=== PATIENT | female | born 1980 | race Caucasian/White ===

== ENCOUNTER 2016-12-30 22:22 | Emergency (ER) | payer MEDICAID ==
[2016-12-31] MEDS ORDERED: OXYCODONE HCL IR 5 MG TABLET PO ONE (01:35)
--- NOTE | 2016-12-31 01:41 | ER Document Report ---
HPI - HPI Patient complains to provider of: right shoulder injury Pain Level: 4 Context: Patient is a 36-year-old female that comes emergency department for chief complaint of right shoulder pain. She states that 3 weeks ago she had an initial injury where she was lifting a box and felt a sharp pop, she had swelling and bruising to the area which has resolved, however today she again felt a sharp pain without lifting and this has not resolved. Patient states she has had rotator cuff injuries twice in the past. She has never had shoulder surgery. - REPRODUCTIVE Reproductive: DENIES: : - DERM Skin Color: Normal, [place] Past Medical History - General Information source: Patient - Social History Smoking Status: Never Smoker Frequency of alcohol use: None Drug Abuse: None Lives with: Family Family History: Reviewed & Not Pertinent Patient has suicidal ideation: No Patient has homicidal ideation: No - Past Medical History Cardiac Medical History: Reports: Hx Hypertension Neurological Medical History: Reports: Hx Migraine Renal/ Medical History: Denies: Hx Peritoneal Dialysis Psychiatric Medical History: Reports: Hx Depression Past Surgical History: Reports: Hx Abdominal Surgery, Hx Appendectomy, Hx Cholecystectomy, Hx Hysterectomy, Hx Oral Surgery, Hx Orthopedic Surgery, Hx Tubal Ligation - Immunizations Hx Diphtheria, Pertussis, Tetanus Vaccination: Yes Vertical Provider Document - CONSTITUTIONAL General Appearance: WD/WN, Mild Distress - patient appears to be in some pain, no severe distress - INFECTION CONTROL TRAVEL OUTSIDE OF THE [place] IN LAST 30 DAYS: No - HEENT HEENT: Atraumatic, Normocephalic - NECK Neck: Normal Inspection - RESPIRATORY Respiratory: Breath Sounds Normal, No Respiratory Distress O2 Sat by Pulse Oximetry: 96 - CARDIOVASCULAR Cardiovascular: Regular Rate, Regular Rhythm - GI/ABDOMEN Gastrointestinal: Abdomen Soft, Abdomen Non-Tender - BACK Back: Normal Inspection - MUSCULOSKELETAL/EXTREMETIES Musculoskeletal/Extremeties: Tender - Tender generally over the right proximal humerus and over the superior and anterior shoulder. Very painful performance of limited abduction. Can put arm behind back. 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 Course - Re-evaluation Re-evalutation: Patient was very limited range of motion of the right shoulder, on examination the shoulder is not dislocated, patient has tenderness over the area. She can still place her arm behind her back. She has almost no ability to perform abduction. Normal distal neurovascular exam. Patient has already had an x-ray on this. Placing insulin, referring to orthopedics, discussed return precautions, patient states understanding and agreement. - Vital Signs Vital signs: Temp Pulse Resp BP Pulse Ox 98.3 F 91 20 129/101 H 96 12/30/16 23:42 12/30/16 23:42 12/30/16 23:42 12/30/16 23:42 12/30/16 23:42 Discharge - Discharge Clinical Impression: Right shoulder injury Qualifiers: Encounter type: initial encounter Qualified Code(s): S49.91XA - Unspecified injury of right shoulder and upper arm, initial encounter Condition: Stable Disposition: HOME, SELF-CARE Additional Instructions: Your examination is concerning for a torn rotator cuff. This may heal, or it may require surgery. Take medications as prescribed, follow-up closely with orthopedics. Take the arm out of the sling several times a day to perform mild range of motion movements to avoid locking of the shoulder. Return to the emergency department for any concerning symptoms. Prescriptions: Oxycodone HCl [Oxy-Ir 5 mg Tablet] 5 mg PO Q4HP PRN #12 tab PRN Reason: Naproxen 500 mg PO BID #20 tablet Referrals: GERBER HAYES MD [ACTIVE STAFF] - Follow up in 3-5 days
[2016-12-31 01:47] VITALS: BP 131/90
== END 2016-12-31 02:00 | disposition home or self-care (01) ==
LOC: ER 22:22
DX: S49.91XA Unspecified injury of right shoulder and upper arm, initial encounter (principal); M79.89 Other specified soft tissue disorders; X50.0XXA Overexertion from strenuous movement or load, initial encounter
CPT/HCPCS: 99283; J3490

== ENCOUNTER 2017-01-21 14:09 | Emergency (ER) | payer MEDICAID ==
--- NOTE | 2017-01-21 15:16 | ER Document Report ---
HPI - HPI Patient complains to provider of: wrist pain Onset: Other - 3 days Onset/Duration: Persistent Quality of pain: Achy Severity: Severe Pain Level: 4 Context: Patient presents to the emergency department with complaints of right wrist pain for the past 3 days. She reports history of seizures and thinks she may have hurt it when she had a seizure. Associated Symptoms: None Exacerbated by: Movement Relieved by: Denies Similar symptoms previously: No Recently seen / treated by doctor: No - REPRODUCTIVE Reproductive: DENIES: : - DERM Skin Color: Normal Past Medical History - General Information source: Patient - Social History Smoking Status: Unknown if Ever Smoked Cigarette use (# per day): No Frequency of alcohol use: None Drug Abuse: None Lives with: Family Family History: Reviewed & Not Pertinent - Past Medical History Cardiac Medical History: Reports: Hx Hypertension Neurological Medical History: Reports: Hx Migraine, Hx Seizures Renal/ Medical History: Denies: Hx Peritoneal Dialysis Psychiatric Medical History: Reports: Hx Depression Past Surgical History: Reports: Hx Abdominal Surgery, Hx Appendectomy, Hx Cholecystectomy, Hx Hysterectomy, Hx Oral Surgery, Hx Orthopedic Surgery, Hx Tubal Ligation - Immunizations Hx Diphtheria, Pertussis, Tetanus Vaccination: Yes Vertical Provider Document - CONSTITUTIONAL Agree With Documented VS: Yes Exam Limitations: No Limitations General Appearance: WD/WN - INFECTION CONTROL TRAVEL OUTSIDE OF THE [place] IN LAST 30 DAYS: No - HEENT HEENT: Atraumatic, Normocephalic - NECK Neck: Supple - RESPIRATORY Respiratory: No Respiratory Distress O2 Sat by Pulse Oximetry: 97 - CARDIOVASCULAR Cardiovascular: Regular Rate - MUSCULOSKELETAL/EXTREMETIES Musculoskeletal/Extremeties: MAEW, FROM, Tender - reports lateral right wrist ttp, no obvious deformity, no swelling, no erythema/warmth, good radial pulse, brisk cap refill - NEURO Level of Consciousness: Awake, Alert, Appropriate Motor/Sensory: No Motor Deficit - DERM Integumentary: Warm, Dry Adult Front & Back Diagram: 1 - reports pain Course - Re-evaluation Re-evalutation: 01/21/17 15:45 pt instructed on neg xray, instructed on ice, ibuprofen, fu with pcp for continued pain. pt very irritated, "why am i hurting" "motrin not helping the pain" Pt instructed to fu with pcp and referral to ortho as indicated - Vital Signs Vital signs: Temp Pulse Resp BP Pulse Ox 98.4 F 96 16 149/91 H 97 01/21/17 14:16 01/21/17 14:16 01/21/17 14:16 01/21/17 14:16 01/21/17 14:16 - Diagnostic Test Radiology reviewed: Image reviewed, Reports reviewed - neg for fx Discharge - Discharge Clinical Impression: Right wrist pain, Elevated blood pressure reading Condition: Stable Disposition: HOME, SELF-CARE Additional Instructions: *You have been evaluated for right wrist pain, elevated blood pressure reading *Rest/Ice/Elevate *Follow up with orthopedics for continued pain-call for an appointment *Take ibuprofen as indicated for pain *Return to ED for worsening condition, changes, needs ready for blood pressure Monitor your blood pressure. Your blood pressure was elevated today. This may be because you were anxious, in pain or because you need medication. It is important to follow up with your primary care provider for full evaluation. Forms: Elevated Blood Pressure
[2017-01-21 15:59] VITALS: BP 119/84
== END 2017-01-21 15:58 | disposition home or self-care (01) ==
LOC: ER 14:09
DX: M25.531 Pain in right wrist (principal); R03.0 Elevated blood-pressure reading, without diagnosis of hypertension; R56.9 Unspecified convulsions
CPT/HCPCS: 99283

== ENCOUNTER 2017-03-26 13:26 | Emergency (ER) | payer MEDICAID ==
[2017-03-26 13:58] VITALS: BP 131/90
[2017-03-26] MEDS ORDERED: NORMAL SALINE 1000 ML 1,000 ML IV ONE (14:24)
[2017-03-26] MEDS ORDERED: ONDANSETRON HCL INJ/PF 4 MG/2 ML SDV IV ONE (14:24)
--- NOTE | 2017-03-26 14:26 | ER Document Report ---
ED Medical Screen (RME) - General Chief Complaint: Nausea/Vomiting/Diarrhea Stated Complaint: VOMITING,WEAKNESS Time Seen by Provider: 03/26/17 14:23 Mode of Arrival: Wheelchair Information source: Patient TRAVEL OUTSIDE OF THE U.[place] IN LAST 30 DAYS: No - HPI Patient complains to provider of: vomiting, dehydration Onset: Other - pt. without AC in her home was seen last night at [facility] in [place] for dehydration and vomiting -- was only given a small amount of IVF and told she had a UTI. Had continued vomiting today. Can't keep anything down - Related Data Allergies/Adverse Reactions: tramadol [Tramadol] Allergy (Verified 03/26/17 13:54) seizure acetaminophen [From Tylenol] Adverse Reaction (Verified 03/26/17 13:54) rash lorazepam [Lorazepam] Adverse Reaction (Verified 03/26/17 13:54) rash Penicillins Adverse Reaction (Verified 03/26/17 13:54) rash Past Medical History - Past Medical History Cardiac Medical History: Reports: Hx Hypertension Neurological Medical History: Reports: Hx Migraine, Hx Seizures Renal/ Medical History: Denies: Hx Peritoneal Dialysis Musculoskeltal Medical History: Reports Hx Arthritis Psychiatric Medical History: Reports: Hx Depression Past Surgical History: Reports: Hx Abdominal Surgery, Hx Appendectomy, Hx Cholecystectomy, Hx Hysterectomy, Hx Oral Surgery, Hx Orthopedic Surgery, Hx Tubal Ligation - Immunizations Hx Diphtheria, Pertussis, Tetanus Vaccination: Yes Physical Exam - Vital signs Vitals: Temp Pulse Resp BP Pulse Ox 98.0 F 89 16 131/90 H 98 03/26/17 13:55 03/26/17 13:55 03/26/17 13:55 03/26/17 13:55 03/26/17 13:55 Course - Vital Signs Vital signs: Temp Pulse Resp BP Pulse Ox 98.0 F 89 16 131/90 H 98 03/26/17 13:55 03/26/17 13:55 03/26/17 13:55 03/26/17 13:55 03/26/17 13:55
[2017-03-26 15:05] LABS: ABSOLUTE BASOPHILS # (AUTO) 0.1 10^3/uL (0.0-0.2); ABSOLUTE EOSINOPHILS # (AUTO) 0.1 10^3/uL (0.0-0.6); ABSOLUTE LYMPHOCYTES (AUTO) 2.8 10^3/uL (0.5-4.7); ABSOLUTE MONOCYTES (AUTO) 0.7 10^3/uL (0.1-1.4); ABSOLUTE NEUT (AUTO) 5.3 10^3/uL (1.7-8.2); BASOPHILS % (AUTO) 0.9 % (0-2); EOSINOPHILS % (AUTO) 1.2 % (0-6); HEMATOCRIT 42.7 % (36.0-47.0); HEMOGLOBIN 14.7 g/dL (12.0-15.5); HGB HCT DIFFERENCE 1.4; LYMPHOCYTES % (AUTO) 30.9 % (13-45); MEAN CORPUSCULAR HEMOGLOBIN 32.3 pg (27.0-33.4); MEAN CORPUSCULAR HGB CONC 34.5 g/dL (32.0-36.0); MEAN CORPUSCULAR VOLUME 94 fl (80-97); MONOCYTES % (AUTO) 8.2 % (3-13); RED BLOOD COUNT 4.56 10^6/uL (3.72-5.28); RED CELL DISTRIBUTION WIDTH 13.2 % (11.5-14.0); SEGMENTED NEUTROPHILS % (AUTO) 58.8 % (42-78); WHITE BLOOD COUNT 9.1 10^3/uL (4.0-10.5)
[2017-03-26 15:24] LABS: ALANINE AMINOTRANSFERASE 38 U/L (9-52); ALBUMIN 4.9 g/dL (3.5-5.0); ALKALINE PHOSPHATASE 160 U/L (38-126); ANION GAP 14 (5-19); ASPARTATE AMINO TRANSFERASE 21 U/L (14-36); BILIRUBIN,DIRECT 0.3 mg/dL (0.0-0.4); BILIRUBIN,TOTAL 0.9 mg/dL (0.2-1.3); BLOOD UREA NITROGEN 16 mg/dL (7-20); CARBON DIOXIDE 25 mmol/L (22-30); CHLORIDE 101 mmol/L (98-107); CREATININE RESULT 0.76 mg/dL (0.52-1.25); GLUCOSE 96 mg/dL (75-110); POTASSIUM 4.3 mmol/L (3.6-5.0); SODIUM 140.2 mmol/L (137-145); TOTAL PROTEIN 8.6 g/dL (6.3-8.2)
[2017-03-26 15:37] LABS: APPEARANCE,URINE SLIGHTLY-CLOUDY; BILIRUBIN,URINE NEGATIVE (NEGATIVE); GLUCOSE, URINE NEGATIVE (NEGATIVE); KETONES,URINE NEGATIVE (NEGATIVE); LEUKOCYTE ESTERASE,URINE NEGATIVE (NEGATIVE); NITRITE,URINE NEGATIVE (NEGATIVE); PROTEIN,URINE 30 mg/dL (NEGATIVE); URINE SPECIFIC GRAVITY 1.025; UROBILINOGEN,URINE NEGATIVE mg/dL (<2.0)
--- NOTE | 2017-03-26 16:41 | ER Document Report ---
ED General - General Chief Complaint: Nausea/Vomiting/Diarrhea Stated Complaint: VOMITING,WEAKNESS Time Seen by Provider: 03/26/17 14:23 Mode of Arrival: Wheelchair Notes: 37-year-old female presents with dehydration and weakness. She thinks she is dehydrated because she has been able to keep anything down secondary to vomiting. She believes the vomiting is secondary to a kidney infection which was diagnosed last night at [facility] where she got IV fluids and is now taking Bactrim and Pyridium. She has had a history of nauseous before and normally takes Zofran has not had any medicine. Decreased oral intake. No fevers or chills, no worsening of UTI symptoms TRAVEL OUTSIDE OF THE [place] IN LAST 30 DAYS: No - Related Data Allergies/Adverse Reactions: tramadol [Tramadol] Allergy (Verified 03/26/17 13:54) seizure acetaminophen [From Tylenol] Adverse Reaction (Verified 03/26/17 13:54) rash lorazepam [Lorazepam] Adverse Reaction (Verified 03/26/17 13:54) rash Penicillins Adverse Reaction (Verified 03/26/17 13:54) rash Past Medical History - General Information source: Patient - Social History Smoking Status: Current Every Day Smoker Chew tobacco use (# tins/day): No Frequency of alcohol use: None Drug Abuse: Marijuana Family History: Reviewed & Not Pertinent - Past Medical History Cardiac Medical History: Reports: Hx Hypertension Neurological Medical History: Reports: Hx Migraine, Hx Seizures Renal/ Medical History: Denies: Hx Peritoneal Dialysis Musculoskeltal Medical History: Reports Hx Arthritis Psychiatric Medical History: Reports: Hx Depression Past Surgical History: Reports: Hx Abdominal Surgery, Hx Appendectomy, Hx Cholecystectomy, Hx Hysterectomy, Hx Oral Surgery, Hx Orthopedic Surgery, Hx Tubal Ligation - Immunizations Hx Diphtheria, Pertussis, Tetanus Vaccination: Yes Review of Systems - Review of Systems Notes: REVIEW OF SYSTEMS GEN: Dehydration weakness ENT: Denies sore throat, nasal discharge, ear pain EYES: Denies blurry vision, eye pain, discharge CV: Denies chest pain, palpitations, edema RESP: Denies cough, shortness of breath, wheezing GI: Denies abdominal pain, nausea, vomiting, diarrhea MSK: Denies joint pain/swelling, edema, positive right flank pain SKIN: Denies rash, skin lesions LYMPH: Denies swollen glands/lymph nodes NEURO: Denies headache, focal weakness or numbness, dizziness PSYCH: Denies depression, suicidal or homicidal ideation PHYSICAL EXAMINATION General: No acute distress, well-nourished Head: Atraumatic, normocephalic ENT: Mouth normal, oropharynx moist, no exudates or tonsillar enlargement Eyes: Conjunctiva normal, pupils equal, lids normal Neck: No JVD, supple, no guarding CVS: Normal rate, regular rhythm, no murmurs Resp: No resp distress, equal and normal breath sounds bilaterally GI: Nondistended, soft, no tenderness to palpation, no rebound or guarding Ext: No deformities, no edema, normal range of motion in upper and lower ext Back: CVA tenderness Skin: No rash, warm Lymphatic: No lymphadeopathy noted Neuro: Awake, alert. Face symmetric. GCS 15. Physical Exam - Vital signs Vitals: Temp Pulse Resp BP Pulse Ox 98.0 F 89 16 131/90 H 98 03/26/17 13:55 03/26/17 13:55 03/26/17 13:55 03/26/17 13:55 03/26/17 13:55 Course - Re-evaluation Re-evalutation: 03/26/17 16:40 With known UTI versus pyelonephritis presents with decreased oral intake and nausea. Her vitals are normal her exam is reassuring and her labs are normal. She was given IV fluid which improved her symptoms. She has no signs of sepsis. She feels comfortable being discharged as long as she can get some oral dissolving Zofran which I will prescribe. Believe she requires imaging. Continue current medical regimen. I have discussed with the patient there likely diagnosis, aftercare plan, follow -up plans and my usual and customary return precautions. They verbalized understanding of this. - Vital Signs Vital signs: Temp Pulse Resp BP Pulse Ox 98.0 F 89 16 131/90 H 98 03/26/17 13:55 03/26/17 13:55 03/26/17 13:55 03/26/17 13:55 03/26/17 13:55 - Laboratory Result Diagrams: 03/26/17 14:45 03/26/17 14:45 Laboratory results interpreted by me: 03/26/17 03/26/17 14:45 15:25 Alkaline Phosphatase 160 H Total Protein 8.6 H Urine Protein 30 H Discharge - Discharge Clinical Impression: Dehydration Condition: Good Disposition: HOME, SELF-CARE Instructions: Vomiting ([facility]) Additional Instructions: Please see her primary care doctor within 1 week or obtain new primary care which is more available to you. Prescriptions: Ondansetron [Zofran Odt 4 mg Tablet] 1 - 2 tab PO Q4HP PRN #10 tab.rapdis PRN Reason:
== END 2017-03-26 17:24 | disposition home or self-care (01) ==
LOC: ER 13:26
DX: E86.0 Dehydration (principal); R53.1 Weakness; N15.9 Renal tubulo-interstitial disease, unspecified; Z88.5 Allergy status to narcotic agent; F17.200 Nicotine dependence, unspecified, uncomplicated; I10 Essential (primary) hypertension
CPT/HCPCS: 99284; 96374; 36415; 85025; 80053; 81001; J2405; J7030

== ENCOUNTER 2018-02-09 16:02 | Emergency (ER) | payer MEDICAID ==
[2018-02-09] MEDS ORDERED: NORMAL SALINE 1000 ML 1,000 ML IV ONE (16:58)
--- NOTE | 2018-02-09 16:59 | ER Document Report ---
ED Medical Screen (RME) - General Chief Complaint: Abdominal Pain Stated Complaint: LOWER ABDOMINAL PAIN Time Seen by Provider: 02/09/18 16:58 Mode of Arrival: Ambulatory Information source: Patient Notes: This is a 38-year-old female with a history of abdominal adhesions presents to the emergency room with right lower quadrant pain in the setting of recent URI with significant coughing and laryngitis. I have greeted and performed a rapid initial assessment of this patient. A comprehensive ED assessment and evaluation of the patient, analysis of test results and completion of medical decision making process we will be contacted by additional ED providers. TRAVEL OUTSIDE OF THE [place] IN LAST 30 DAYS: No - Related Data Allergies/Adverse Reactions: tramadol [Tramadol] Allergy (Verified 02/09/18 16:05) seizure acetaminophen [From Tylenol] Adverse Reaction (Verified 02/09/18 16:05) rash codeine Adverse Reaction (Verified 02/09/18 16:05) lorazepam [Lorazepam] Adverse Reaction (Verified 02/09/18 16:05) rash NSAIDS (Non-Steroidal Anti-Inflamma Adverse Reaction (Verified 02/09/18 16:05) Penicillins Adverse Reaction (Verified 02/09/18 16:05) rash Past Medical History - Past Medical History Cardiac Medical History: Reports: Hx Hypertension Neurological Medical History: Reports: Hx Migraine, Hx Seizures Renal/ Medical History: Denies: Hx Peritoneal Dialysis Musculoskeltal Medical History: Reports Hx Arthritis Psychiatric Medical History: Reports: Hx Depression Past Surgical History: Reports: Hx Abdominal Surgery, Hx Appendectomy, Hx Cholecystectomy, Hx Hysterectomy, Hx Oral Surgery, Hx Orthopedic Surgery, Hx Tubal Ligation - Immunizations Hx Diphtheria, Pertussis, Tetanus Vaccination: Yes Physical Exam - Vital signs Vitals: Temp Resp BP 98.6 F 22 H 137/77 H 02/09/18 16:11 02/09/18 16:11 02/09/18 16:11 Course - Vital Signs Vital signs: Temp Pulse Resp BP Pulse Ox 98.6 F 22 H 137/77 H 02/09/18 16:11 02/09/18 16:11 02/09/18 16:11
[2018-02-09 17:36] LABS: ABSOLUTE EOSINOPHILS # (AUTO) 0.2 10^3/uL (0.0-0.6); ABSOLUTE LYMPHOCYTES (AUTO) 2.6 10^3/uL (0.5-4.7); ABSOLUTE MONOCYTES (AUTO) 0.5 10^3/uL (0.1-1.4); ABSOLUTE NEUT (AUTO) 3.5 10^3/uL (1.7-8.2); BASOPHILS % (AUTO) 0.7 % (0-2); EOSINOPHILS % (AUTO) 3.2 % (0-6); HEMATOCRIT 43.4 % (36.0-47.0); HEMOGLOBIN 14.9 g/dL (12.0-15.5); LYMPHOCYTES % (AUTO) 37.6 % (13-45); MEAN CORPUSCULAR HEMOGLOBIN 32.4 pg (27.0-33.4); MEAN CORPUSCULAR HGB CONC 34.3 g/dL (32.0-36.0); MEAN CORPUSCULAR VOLUME 95 fl (80-97); MONOCYTES % (AUTO) 6.8 % (3-13); PLATELET COUNT 227 10^3/uL (150-450); RED BLOOD COUNT 4.59 10^6/uL (3.72-5.28); RED CELL DISTRIBUTION WIDTH 13.2 % (11.5-14.0); SEGMENTED NEUTROPHILS % (AUTO) 51.7 % (42-78); TOTAL CELLS COUNTED % (AUTO) 100 %; WHITE BLOOD COUNT 6.8 10^3/uL (4.0-10.5)
[2018-02-09 17:52] LABS: ALANINE AMINOTRANSFERASE 34 U/L (9-52); ALKALINE PHOSPHATASE 162 U/L (38-126); ANION GAP 14 (5-19); ASPARTATE AMINO TRANSFERASE 26 U/L (14-36); BILIRUBIN,DIRECT 0.3 mg/dL (0.0-0.4); BILIRUBIN,TOTAL 0.3 mg/dL (0.2-1.3); BLOOD UREA NITROGEN 9 mg/dL (7-20); CALCIUM 10.5 mg/dL (8.4-10.2); CARBON DIOXIDE 27 mmol/L (22-30); CHLORIDE 105 mmol/L (98-107); GLUCOSE 84 mg/dL (75-110); POTASSIUM 4.8 mmol/L (3.6-5.0); SODIUM 145.9 mmol/L (137-145); TOTAL PROTEIN 8.1 g/dL (6.3-8.2)
[2018-02-09 18:12] LABS: APPEARANCE,URINE SLIGHTLY-CLOUDY; BILIRUBIN,URINE NEGATIVE (NEGATIVE); COLOR,URINE YELLOW; GLUCOSE, URINE NEGATIVE (NEGATIVE); KETONES,URINE NEGATIVE (NEGATIVE); LEUKOCYTE ESTERASE,URINE NEGATIVE (NEGATIVE); NITRITE,URINE NEGATIVE (NEGATIVE); PROTEIN,URINE NEGATIVE (NEGATIVE); URINE SPECIFIC GRAVITY 1.018; UROBILINOGEN,URINE NEGATIVE mg/dL (<2.0)
--- NOTE | 2018-02-09 19:22 | ER Document Report ---
ED GI/ - General Chief Complaint: Abdominal Pain Stated Complaint: LOWER ABDOMINAL PAIN Time Seen by Provider: 02/09/18 16:58 Mode of Arrival: Ambulatory Notes: The patient is a 38-year-old female with history of an appendectomy, cholecystectomy, bilateral salpingo-oophorectomy as well as hysterectomy with a history of ovarian and cervical cancer who presents with 4-5 days of right lower abdominal pain. She describes as a cramping, aching, constant pain to the lower abdomen. Nothing improves or worsens this pain. She notes associated nausea and vomiting but has been able to intermittently tolerate oral intake without difficulty. She has continued to have bowel movements although she notes that these are mostly diarrheal bowel movements. She states that she has had recurrent symptoms similar in the past due to abdominal adhesions that felt very similar. She has not seen her primary doctor regarding today's concerns. She denies any fever or constitutional symptoms. She denies any dysuria. Nothing is new or different about her pain that prompted an emergency department visit today. TRAVEL OUTSIDE OF THE [place] IN LAST 30 DAYS: No - Related Data Allergies/Adverse Reactions: tramadol [Tramadol] Allergy (Verified 02/09/18 16:05) seizure acetaminophen [From Tylenol] Adverse Reaction (Verified 02/09/18 16:05) rash codeine Adverse Reaction (Verified 02/09/18 16:05) lorazepam [Lorazepam] Adverse Reaction (Verified 02/09/18 16:05) rash NSAIDS (Non-Steroidal Anti-Inflamma Adverse Reaction (Verified 02/09/18 16:05) Penicillins Adverse Reaction (Verified 02/09/18 16:05) rash Past Medical History - General Information source: Patient - Social History Smoking Status: Current Every Day Smoker Frequency of alcohol use: None Drug Abuse: None Lives with: Spouse/Significant other Family History: Reviewed & Not Pertinent Patient has suicidal ideation: No Patient has homicidal ideation: No - Past Medical History Cardiac Medical History: Reports: Hx Hypertension Neurological Medical History: Reports: Hx Migraine, Hx Seizures Renal/ Medical History: Denies: Hx Peritoneal Dialysis Musculoskeltal Medical History: Reports Hx Arthritis Psychiatric Medical History: Reports: Hx Depression Past Surgical History: Reports: Hx Abdominal Surgery, Hx Appendectomy, Hx Cholecystectomy, Hx Hysterectomy, Hx Oral Surgery, Hx Orthopedic Surgery, Hx Tubal Ligation - Immunizations Hx Diphtheria, Pertussis, Tetanus Vaccination: Yes Review of Systems - Review of Systems Notes: Constitutional: Negative for fever. HENT: Negative for sore throat. Eyes: Negative for visual changes. Cardiovascular: Negative for chest pain. Respiratory: Negative for shortness of breath. Gastrointestinal: Positive for abdominal pain and nausea Genitourinary: Negative for dysuria. Musculoskeletal: Negative for back pain. Skin: Negative for rash. Neurological: Negative for headaches, weakness or numbness. 10 point ROS negative except as marked above and in HPI. Physical Exam - Vital signs Vitals: Temp Resp BP 98.6 F 22 H 137/77 H 02/09/18 16:11 02/09/18 16:11 02/09/18 16:11 Interpretation: Normal Notes: PHYSICAL EXAMINATION: GENERAL: Well-appearing, well-nourished and in no acute distress. HEAD: Atraumatic, normocephalic. EYES: Pupils equal round and reactive to light, extraocular movements intact, sclera anicteric, conjunctiva are normal. ENT: nares patent, oropharynx clear without exudates. Moist mucous membranes. NECK: Normal range of motion, supple without lymphadenopathy LUNGS: Breath sounds clear to auscultation bilaterally and equal. No wheezes rales or rhonchi. HEART: Regular rate and rhythm without murmurs ABDOMEN: Soft, morbidly obese abdomen, mild tenderness to the right lower abdomen but no other localized areas of tenderness, normoactive bowel sounds. No guarding, no rebound. No masses appreciated. EXTREMITIES: Normal range of motion, no pitting or edema. No cyanosis. NEUROLOGICAL: No focal neurological deficits. Moves all extremities spontaneously and on command. PSYCH: Normal mood, normal affect. SKIN: Warm, Dry, normal turgor, no rashes or lesions noted. Course - Re-evaluation Re-evalutation: 02/09/18 19:14 Presentation of a well-appearing 38-year-old female in no acute distress complaining of right lower abdominal pain. Over she does have a known history of an appendectomy, bilateral salpingo-oophorectomy, hysterectomy, but a history of repeated abdominal adhesions. On abdominal examination she does have some mild right lower quadrant abdominal tenderness but no rebound or guarding. Abdomen is soft, nondistended. Her vitals are within normal limits. She does have some vomiting but has been able to tolerate oral intake here in the emergency for any difficulty. Given her extensive surgical history, many diagnostic considerations are eliminated. Alternative ongoing considerations would be mesenteric adenitis, ileus, small bowel obstruction, ovarian regrowth bleeding. Based on her reassuring examination I think the likelihood of any life-threatening pathology is overall quite low. I have had a risks and benefits conversation with the patient regarding CT imaging of the abdomen and pelvis at this time. We discussed, based on today's exam and labs there is a possibility that they could have a diagnosis that could be better clarified by CT and that this could possibly global climate change analyst. We discussed the risks of radiation to the abdomen and pelvis. We discussed the alternative of close follow-up with their primary care physician for a recheck of the abdomen within 24 hours as well as reasons to return to the emergency department. After this conversation, the patient has elected to avoid CT imaging of the abdomen and pelvis at this time. They have capacity. They have verbalized the importance of close follow-up as well as reasons to return to the emergency department including worsening abdominal pain, fever, persistent vomiting, or any other symptoms that are worrisome to them. 02/10/18 04:14 - Vital Signs Vital signs: Temp Pulse Resp BP Pulse Ox 98.6 F 72 16 128/76 H 98 02/09/18 16:11 02/09/18 19:50 02/09/18 19:50 02/09/18 19:50 02/09/18 19:50 - Laboratory Result Diagrams: 02/09/18 17:15 02/09/18 17:15 Laboratory results interpreted by me: 02/09/18 17:15 Sodium 145.9 H Calcium 10.5 H Alkaline Phosphatase 162 H Discharge - Discharge Clinical Impression: Right lower quadrant abdominal pain Nausea and vomiting Qualifiers: Vomiting type: unspecified Vomiting Intractability: non-intractable Qualified Code(s): R11.2 - Nausea with vomiting, unspecified Condition: Good Disposition: HOME, SELF-CARE Additional Instructions: You have been seen in the Emergency Department (ED) for abdominal pain. Your evaluation did not identify a clear cause of your symptoms but was generally reassuring. Please follow up with your doctor as soon as possible regarding today's emergent visit and the symptoms that are bothering you. Return to the ED if your abdominal pain worsens or fails to improve, you develop bloody vomiting, bloody diarrhea, you are unable to tolerate fluids due to vomiting, fever greater than 101, or other symptoms that concern you.
[2018-02-09 19:51] VITALS: BP 128/76
== END 2018-02-09 19:49 | disposition home or self-care (01) ==
LOC: ER 16:02
DX: R10.31 Right lower quadrant pain (principal); R10.813 Right lower quadrant abdominal tenderness; R11.2 Nausea with vomiting, unspecified; R19.7 Diarrhea, unspecified; F17.200 Nicotine dependence, unspecified, uncomplicated; I10 Essential (primary) hypertension; Z85.43 Personal history of malignant neoplasm of ovary; Z85.41 Personal history of malignant neoplasm of cervix uteri; Z90.49 Acquired absence of other specified parts of digestive tract; Z90.710 Acquired absence of both cervix and uterus; Z90.79 Acquired absence of other genital organ(s); Z88.5 Allergy status to narcotic agent
CPT/HCPCS: 99284; 96360; 36415; 84702; 85025; 80053; 81001; J7030